=== PATIENT | female | born 1945 | race Caucasian/White ===

== ENCOUNTER → 2016-12-27 | Outpatient (CLI) | payer MEDICARE ==
[~2016-12-27] MED LIST: BACLOFEN10 MG PO; CLINDAMYCIN HC300 MG PO; CYMBALTA60 MG PO; HYDROCODONE BIT1 T11 PO; LISINOPRIL10 MG PO; NEURONTIN300 MG PO; NORFLEX100 MG PO; PERCOCET 325 MG1 TA5 PO; VOLTAREN 2.5 M2.5 ML OPH
--- NOTE | ~2016-12-27 | HM ---
[place], [place] HOLTER MONITOR REPORT NAME: MONTEZ ALVES I UNIT #: [id number] ROOM: DOCTOR: FERNANDEZ VILLEGAS MD BIRTHDATE: [birth year] DOS: A 48-hour Holter monitor. REFERRING PHYSICIAN: Dr. Joshua Hammond and Dr. Shanique Streeter INDICATIONS: Bradycardia, dizziness and dyspnea. PROCEDURE: The patient was monitored utilizing a Holter device from December 27 through 12/29/2016 for 48 hours. The recording was reviewed and this is being dictated on 01/01/2017. FINDINGS: The patient was in sinus rhythm during the entire examination. Average heart rate was 67 with sinus heart rates varying from 50-106 beats per minute. The patient had rare premature ventricular contractions. No ventricular tachycardia was seen. The patient had rare premature atrial contractions. She had 3 short runs of SVT lasting up to 9 beats in duration. The 9 beat episode occurred at 4:08 a.m. No atrial fibrillation was recorded. There were no prolonged pauses. IMPRESSION: 1. Normal sinus rhythm. 2. Rare premature ventricular contractions without ventricular tachycardia. 3. Rare premature atrial contractions with 3 short runs of supraventricular tachycardia, the longest of which was 9 beats in duration. The patient did not return her diary and therefore no symptoms were available for correlation. FERNANDEZ VILLEGAS MD CM:HOLTER:HOLTER MONITOR REPORT [id number] FERNANDEZ VILLEGAS MD
== END | disposition home or self-care (01) ==
LOC: CARD 13:00
DX: R00.1 Bradycardia, unspecified (principal); R42 Dizziness and giddiness; R06.00 Dyspnea, unspecified

== ENCOUNTER → 2018-11-22 | Outpatient (CLI) | payer MEDICARE, OTHER ==
[2018-11-22 12:38] LABS: ALBUMIN 3.8 gm/dl (3.1-4.5); ALKALINE PHOSPHATASE 73 U/L (45-117); BUN 16 mg/dl (7-24); CHLORIDE 108 mmol/L (98-107); CHOLESTEROL 143 mg/dL (<200); CREATININE 0.91 mg/dL (0.55-1.02); HDL CHOLESTEROL 50 mg/dl (40-60); LDL CHOLESTEROL 76 mg/dL (9-159); SGOT/AST 16 IU/L (3-35); SGPT/ALT 17 U/L (12-78); SODIUM 142 mmol/L (136-145); TOTAL PROTEIN 7.3 gm/dL (6.4-8.2); TRIGLYCERIDES 87 mg/dl (<150); URIC ACID 6.3 mg/dL (2.6-6.0); VLDL CHOLESTEROL 17 mg/dL (6-40)
[2018-11-22 12:45] LABS: BASO % 0.7 % (0.0-1.0); EOS # 0.1 10*3/uL (0.0-0.4); EOS % 1.8 % (1.0-4.0); HEMATOCRIT 33.9 % (37.0-47.0); HEMOGLOBIN 10.4 g/dl (12.0-16.0); LYMPH # 1.3 10*3/uL (1.3-4.4); LYMPH % 29.6 % (27.0-41.0); MEAN CELL VOLUME 89.4 fl (81.0-99.0); MEAN CORPUSCULAR HGB 27.4 pg (27.0-31.0); MEAN CORPUSCULAR HGB CONC 30.7 g/dl (33.0-37.0); MEAN PLATELET VOLUME 10.4 fl (9.6-12.3); MONO # 0.3 10*3/uL (0.1-1.0); MONO % 5.7 % (3.0-9.0); NEUT # 2.7 10*3/uL (2.3-7.9); PLATELET COUNT AUTOMATED 186 10*3/uL (130-400); RED BLOOD COUNT 3.79 10*6/uL (4.10-5.10); WHITE BLOOD COUNT 4.4 10*3/uL (4.8-10.8)
== END | disposition home or self-care (01) ==
LOC: LAB 11:38
PROVIDERS: Family Medicine
DX: I48.91 Unspecified atrial fibrillation (principal); R20.2 Paresthesia of skin; M25.50 Pain in unspecified joint; Z79.899 Other long term (current) drug therapy

== ENCOUNTER 2019-03-17 13:16 | Emergency (ER) | payer MEDICARE, OTHER ==
[~2019-03-17] VITALS: Wt 113.4 kg
[2019-03-17 13:45] LABS: BASO % 0.6 % (0.0-1.0); EOS # 0.1 10*3/uL (0.0-0.4); EOS % 1.3 % (1.0-4.0); HEMATOCRIT 37.2 % (37.0-47.0); HEMOGLOBIN 11.5 g/dl (12.0-16.0); LYMPH # 1.1 10*3/uL (1.3-4.4); LYMPH % 21.3 % (27.0-41.0); MEAN CELL VOLUME 91.2 fl (81.0-99.0); MEAN CORPUSCULAR HGB 28.2 pg (27.0-31.0); MEAN CORPUSCULAR HGB CONC 30.9 g/dl (33.0-37.0); MEAN PLATELET VOLUME 9.6 fl (9.6-12.3); MONO # 0.4 10*3/uL (0.1-1.0); MONO % 8.2 % (3.0-9.0); NEUT # 3.6 10*3/uL (2.3-7.9); NEUT % 68.4 % (47.0-73.0); PLATELET COUNT AUTOMATED 184 10*3/uL (130-400); RED BLOOD COUNT 4.08 10*6/uL (4.10-5.10); RED CELL DISTRI WIDTH 13.2 % (0-14.5); WHITE BLOOD COUNT 5.3 10*3/uL (4.8-10.8)
[2019-03-17 13:55] LABS: ACT PARTIAL THROMBO TIME 26.4 SECONDS (20.0-32.1); INTERNATIONAL NORM RATIO 0.9 (2.0-3.5)
[2019-03-17 14:00] LABS: ALBUMIN 3.8 gm/dl (3.1-4.5); ALKALINE PHOSPHATASE 74 U/L (45-117); BUN 15 mg/dl (7-24); CHLORIDE 107 mmol/L (98-107); CREATININE 0.86 mg/dL (0.55-1.02); LIPASE 663 U/L (73-393); POTASSIUM 4.5 mmol/L (3.5-5.1); SGOT/AST 15 IU/L (3-35); SGPT/ALT 19 U/L (12-78); SODIUM 142 mmol/L (136-145); TOTAL PROTEIN 7.4 gm/dL (6.4-8.2)
[2019-03-17 14:02] LABS: TROPONIN I < 0.015 ng/ml (<0.045)
[2019-03-17 14:54] LABS: BILIRUBIN NEGATIVE (NEGATIVE); BLOOD NEGATIVE (NEGATIVE); CLARITY CLEAR (CLEAR); COLOR YELLOW (YELLOW); GLUCOSE NEGATIVE (NEGATIVE); KETONE NEGATIVE (NEGATIVE); LEUKO ESTERASE NEGATIVE (NEGATIVE); NITRITE NEGATIVE (NEGATIVE); PH 6.5 (5.0-9.0); SPECIFIC GRAVITY <= 1.005 (1.005-1.030)
[2019-03-17 15:05] LABS: WBC 0-2 wbc/hpf (0-5)
== END 2019-03-17 16:30 | disposition short-term general hospital (02) ==
LOC: ED 13:16
PROVIDERS: Nurse Practitioner Family
DX: S02.2XXA Fracture of nasal bones, initial encounter for closed fracture (principal); S12.101A Unspecified nondisplaced fracture of second cervical vertebra, initial encounter for closed fracture; I10 Essential (primary) hypertension; R20.0 Anesthesia of skin; R20.2 Paresthesia of skin; Z79.2 Long term (current) use of antibiotics; Z79.899 Other long term (current) drug therapy; W19.XXXA Unspecified fall, initial encounter; Y93.89 Activity, other specified; Y92.002 Bathroom of unspecified non-institutional (private) residence as the place of occurrence of the external cause; Y99.8 Other external cause status

== ENCOUNTER 2022-10-04 10:40 | Inpatient (IN) | payer MEDICARE, OTHER ==
[~2022-10-04] VITALS: Ht 160 cm; Wt 136.6 kg
[~2022-10-04 10:40] MED LIST changes: -BACLOFEN10 MG PO; +BACLOFEN5 MG PO
[2022-10-04 10:54] VITALS: BP 109/49
[2022-10-04] MEDS ORDERED: TRAMADOL HCL50 MG PO (11:02)
[2022-10-04] MEDS ORDERED: DICLOFENAC SOD100 G1 T (11:04)
[2022-10-04] MEDS ORDERED: FUROSEMIDE20 M1 PO (11:04)
[2022-10-04] MEDS ORDERED: MYCOLOG OINTMEN15 GM PO (11:06)
[2022-10-04] MEDS ORDERED: BUDESONIDE-FO10.2 G1 INH (11:07)
[2022-10-04] MEDS ORDERED: METOPROLOL SUCC25 M2 PO (11:08)
[2022-10-04 12:03] LABS: BASO % 0.6 % (0.0-1.0); EOS # 0.1 10*3/uL (0.0-0.4); EOS % 1.4 % (1.0-4.0); HEMATOCRIT 34.4 % (37.0-47.0); LYMPH # 1.3 10*3/uL (1.3-4.4); LYMPH % 25.9 % (27.0-41.0); MEAN CELL VOLUME 95.6 fl (81.0-99.0); MEAN CORPUSCULAR HGB 29.4 pg (27.0-31.0); MEAN CORPUSCULAR HGB CONC 30.8 g/dl (33.0-37.0); MEAN PLATELET VOLUME 9.2 fl (9.6-12.3); MONO # 0.3 10*3/uL (0.1-1.0); NEUT # 3.4 10*3/uL (2.3-7.9); NEUT % 65.5 % (47.0-73.0); PLATELET COUNT AUTOMATED 174 10*3/uL (130-400); RED CELL DISTRI WIDTH 13.7 % (0-14.5); WHITE BLOOD COUNT 5.2 10*3/uL (4.8-10.8)
[2022-10-04 12:13] LABS: ACT PARTIAL THROMBO TIME 27.4 SECONDS (20.0-32.1); INTERNATIONAL NORM RATIO 1.1 (2.0-3.5)
[2022-10-04 12:27] LABS: ALKALINE PHOSPHATASE 70 U/L (46-116); BUN 13 mg/dl (9-23); CHLORIDE 109 mmol/L (98-107); LIPASE 22 U/L (12-53); POTASSIUM 4.6 mmol/L (3.4-5.1); SGPT/ALT 9 U/L (10-49); TOTAL PROTEIN 6.7 gm/dL (6.0-8.0)
[2022-10-04 14:52] VITALS: BP 116/50
[2022-10-04 19:33] VITALS: BP 86/48
[2022-10-04 20:15] VITALS: BP 105/66
[2022-10-05 00:48] VITALS: BP 110/60
[2022-10-05 00:53] LABS: BILIRUBIN Negative (Negative); BLOOD Negative (Negative); CLARITY Cloudy (Clear); COLOR Yellow (Yellow); GLUCOSE Negative (Negative); KETONE Negative (Negative); LEUKO ESTERASE 1+ (Negative); NITRITE Negative (Negative); UROBILINOGEN 0.2 E.U./dl (0.0-1.0)
[2022-10-05 01:00] LABS: EPITHELIAL CELLS 41-50
[2022-10-05 01:01] LABS: URIC ACID CRYSTALS 1+
[2022-10-05 06:08] LABS: HEMATOCRIT 34.2 % (37.0-47.0); LYMPH # 0.5 10*3/uL (1.3-4.4); LYMPH % 15.5 % (27.0-41.0); MEAN CELL VOLUME 96.3 fl (81.0-99.0); MEAN CORPUSCULAR HGB 29.3 pg (27.0-31.0); MEAN CORPUSCULAR HGB CONC 30.4 g/dl (33.0-37.0); MEAN PLATELET VOLUME 9.7 fl (9.6-12.3); MONO % 0.6 % (3.0-9.0); NEUT # 2.7 10*3/uL (2.3-7.9); NEUT % 82.7 % (47.0-73.0); PLATELET COUNT AUTOMATED 183 10*3/uL (130-400); RED BLOOD COUNT 3.55 10*6/uL (4.10-5.10); RED CELL DISTRI WIDTH 13.6 % (0-14.5); WHITE BLOOD COUNT 3.2 10*3/uL (4.8-10.8)
[2022-10-05 06:13] LABS: BUN 13 mg/dl (9-23); CHLORIDE 107 mmol/L (98-107); CHOLESTEROL 119 mg/dL (<200); LDL CHOLESTEROL 67 mg/dL (9-159); POTASSIUM 4.5 mmol/L (3.4-5.1); TRIGLYCERIDES 44 mg/dl (<150)
[2022-10-05 06:25] LABS: VITAMIN D, 25-HYDROXY 62.2 ng/mL (30-100)
[2022-10-05 08:00] VITALS: BP 97/43
[2022-10-05 12:00] VITALS: BP 127/62
[2022-10-05 16:00] VITALS: BP 94/43
[2022-10-05 21:30] VITALS: BP 110/60
[2022-10-06] VITALS: BP 116/47
[2022-10-06 06:18] LABS: BUN 18 mg/dl (9-23); CHLORIDE 104 mmol/L (98-107); POTASSIUM 4.3 mmol/L (3.4-5.1)
[2022-10-06 06:38] LABS: HEMATOCRIT 34.4 % (37.0-47.0); LYMPH # 0.6 10*3/uL (1.3-4.4); LYMPH % 8.2 % (27.0-41.0); MEAN CORPUSCULAR HGB CONC 30.5 g/dl (33.0-37.0); MEAN PLATELET VOLUME 9.9 fl (9.6-12.3); MONO # 0.2 10*3/uL (0.1-1.0); MONO % 1.9 % (3.0-9.0); NEUT % 89.4 % (47.0-73.0); PLATELET COUNT AUTOMATED 207 10*3/uL (130-400); RED BLOOD COUNT 3.62 10*6/uL (4.10-5.10); WHITE BLOOD COUNT 7.8 10*3/uL (4.8-10.8)
[2022-10-06 08:00] VITALS: BP 139/73
[2022-10-06 12:00] VITALS: BP 118/55
[2022-10-06] MEDS ORDERED: KLOR-CON 1010 ME1 PO (12:29)
[2022-10-06] MEDS ORDERED: LASIX40 MG PO (12:29)
[2022-10-06] MEDS ORDERED: PREDNISONE10 MG PO (12:29)
[2022-10-06] MEDS ORDERED: ZITHROMAX250 MG PO (12:29)
== END 2022-10-06 15:11 | disposition home or self-care (01) | DRG 177 ==
LOC: ED 10:40 → EDHOLD 12:59 → 4E 12:59 → EDHOLD 13:16 → 4E 18:29
PROVIDERS: Emergency Medicine; Internal Medicine; Student in an Organized Health Care Education/Training Program; ADMIT Student in an Organized Health Care Education/Training Program; ATTEND Student in an Organized Health Care Education/Training Program
DX: J15.6 Pneumonia due to other Gram-negative bacteria (principal); I50.33 Acute on chronic diastolic (congestive) heart failure; J96.01 Acute respiratory failure with hypoxia; I13.0 Hypertensive heart and chronic kidney disease with heart failure and stage 1 through stage 4 chronic kidney disease, or unspecified chronic kidney disease; E44.1 Mild protein-calorie malnutrition; J44.0 Chronic obstructive pulmonary disease with (acute) lower respiratory infection; J44.1 Chronic obstructive pulmonary disease with (acute) exacerbation; Z68.43 Body mass index [BMI] 50.0-59.9, adult; D64.9 Anemia, unspecified; R00.1 Bradycardia, unspecified; E66.01 Morbid (severe) obesity due to excess calories; E87.8 Other disorders of electrolyte and fluid balance, not elsewhere classified; N18.31 Chronic kidney disease, stage 3a; Z87.891 Personal history of nicotine dependence; Z80.1 Family history of malignant neoplasm of trachea, bronchus and lung; Z80.42 Family history of malignant neoplasm of prostate; Z79.899 Other long term (current) drug therapy

== ENCOUNTER 2022-10-31 12:25 | Emergency (ER) | payer MEDICARE, OTHER ==
[~2022-10-31] VITALS: Wt 119.3 kg
[~2022-10-31 12:25] MED LIST changes: +BUDESONIDE-FO10.2 G1 INH; +DICLOFENAC SOD100 G1 T; +FUROSEMIDE20 M1 PO; +KLOR-CON 1010 ME1 PO; +LASIX40 MG PO; +METOPROLOL SUCC25 M2 PO; +MYCOLOG OINTMEN15 GM PO; +PREDNISONE10 MG PO; +TRAMADOL HCL50 MG PO; +ZITHROMAX250 MG PO
[2022-10-31 13:12] LABS: BASO % 0.1 % (0.0-1.0); EOS % 0.5 % (1.0-4.0); HEMATOCRIT 32.6 % (37.0-47.0); LYMPH # 0.9 10*3/uL (1.3-4.4); LYMPH % 12.3 % (27.0-41.0); MEAN CELL VOLUME 95.3 fl (81.0-99.0); MEAN CORPUSCULAR HGB 28.7 pg (27.0-31.0); MEAN CORPUSCULAR HGB CONC 30.1 g/dl (33.0-37.0); MONO # 0.3 10*3/uL (0.1-1.0); MONO % 4.1 % (3.0-9.0); NEUT # 6.1 10*3/uL (2.3-7.9); NEUT % 82.7 % (47.0-73.0); PLATELET COUNT AUTOMATED 160 10*3/uL (130-400); RED BLOOD COUNT 3.42 10*6/uL (4.10-5.10); RED CELL DISTRI WIDTH 13.2 % (0-14.5); WHITE BLOOD COUNT 7.4 10*3/uL (4.8-10.8)
[2022-10-31 13:25] LABS: ACT PARTIAL THROMBO TIME 25.5 SECONDS (20.0-32.1)
[2022-10-31 13:27] LABS: ABG BASE EXCESS -1.9 mmol/L (-2.0-2.0); ARTERIAL BLOOD GAS PH 7.302 (7.35-7.45)
[2022-10-31 13:35] LABS: TOTAL PROTEIN 6.7 gm/dL (6.0-8.0)
[2022-10-31 15:57] LABS: BILIRUBIN Negative (Negative); BLOOD Negative (Negative); CLARITY Clear (Clear); COLOR Yellow (Yellow); GLUCOSE Negative (Negative); KETONE Negative (Negative); LEUKO ESTERASE Negative (Negative); NITRITE Negative (Negative); SPECIFIC GRAVITY 1.015 (1.001-1.030)
[2022-10-31 16:11] LABS: BACTERIA TRACE; EPITHELIAL CELLS 0-2; RBC 0-2 rbc/hpf (0-2); WBC 0-2 wbc/hpf (0-5)
== END 2022-10-31 18:32 | disposition short-term general hospital (02) ==
LOC: ED 12:25
PROVIDERS: Emergency Medicine
DX: S72.92XA Unspecified fracture of left femur, initial encounter for closed fracture (principal); N17.9 Acute kidney failure, unspecified; J96.01 Acute respiratory failure with hypoxia; G93.41 Metabolic encephalopathy; I95.9 Hypotension, unspecified; M19.90 Unspecified osteoarthritis, unspecified site; Z98.890 Other specified postprocedural states; Z87.891 Personal history of nicotine dependence; W01.190A Fall on same level from slipping, tripping and stumbling with subsequent striking against furniture, initial encounter; Y93.89 Activity, other specified; Y92.89 Other specified places as the place of occurrence of the external cause; Y99.8 Other external cause status

== ENCOUNTER → 2023-04-17 | Outpatient (CLI) | payer MEDICARE, OTHER | END | disposition home or self-care (01) | LOC: CT 01:17 | PROVIDERS: ATTEND Internal Medicine Critical Care Medicine | DX: R91.1 Solitary pulmonary nodule (principal); I51.7 Cardiomegaly; J98.11 Atelectasis; K86.89 Other specified diseases of pancreas; J45.40 Moderate persistent asthma, uncomplicated; J96.11 Chronic respiratory failure with hypoxia; I25.10 Atherosclerotic heart disease of native coronary artery without angina pectoris; I70.0 Atherosclerosis of aorta; M25.78 Osteophyte, vertebrae; M48.04 Spinal stenosis, thoracic region; M40.294 Other kyphosis, thoracic region; R60.0 Localized edema; Z99.81 Dependence on supplemental oxygen; Z98.1 Arthrodesis status; Z80.1 Family history of malignant neoplasm of trachea, bronchus and lung; Z68.41 Body mass index [BMI] 40.0-44.9, adult ==

== ENCOUNTER → 2023-07-25 | Outpatient (CLI) | payer MEDICARE, OTHER | END | disposition home or self-care (01) | LOC: CT 01:32 | PROVIDERS: ATTEND Internal Medicine Critical Care Medicine | DX: R91.1 Solitary pulmonary nodule (principal); J45.40 Moderate persistent asthma, uncomplicated; J96.11 Chronic respiratory failure with hypoxia; J98.11 Atelectasis; M25.78 Osteophyte, vertebrae; I25.10 Atherosclerotic heart disease of native coronary artery without angina pectoris; R60.0 Localized edema; Z80.1 Family history of malignant neoplasm of trachea, bronchus and lung; Z99.81 Dependence on supplemental oxygen; Z68.41 Body mass index [BMI] 40.0-44.9, adult; Z87.891 Personal history of nicotine dependence ==

== ENCOUNTER → 2024-02-04 | Outpatient (CLI) | payer MEDICARE, OTHER | END | disposition home or self-care (01) | LOC: CT 10:42 | PROVIDERS: ATTEND Internal Medicine Critical Care Medicine | DX: J45.909 Unspecified asthma, uncomplicated (principal); J96.11 Chronic respiratory failure with hypoxia; R60.0 Localized edema; Z87.891 Personal history of nicotine dependence; Z99.81 Dependence on supplemental oxygen; Z80.1 Family history of malignant neoplasm of trachea, bronchus and lung ==

== ENCOUNTER 2024-08-09 10:48 | Inpatient (IN) | payer MEDICARE ==
[~2024-08-09] VITALS: Ht 160 cm; Wt 93.0 kg
[~2024-08-09 10:48] MED LIST changes: +LISINOPRIL10 M1 PO; -LISINOPRIL10 MG PO
[2024-08-09 10:57] VITALS: BP 101/62
[2024-08-09 11:29] LABS: BASO % 0.4 % (0.0-1.0); EOS # 0.1 10*3/uL (0.0-0.4); EOS % 1.1 % (1.0-4.0); HEMATOCRIT 29.8 % (37.0-47.0); MEAN CELL VOLUME 96.4 fl (81.0-99.0); MEAN CORPUSCULAR HGB 28.8 pg (27.0-31.0); MEAN CORPUSCULAR HGB CONC 29.9 g/dl (33.0-37.0); MEAN PLATELET VOLUME 10.3 fl (9.6-12.3); MONO # 0.5 10*3/uL (0.1-1.0); MONO % 6.4 % (3.0-9.0); NEUT # 5.3 10*3/uL (2.3-7.9); NEUT % 73.8 % (47.0-73.0); PLATELET COUNT AUTOMATED 188 10*3/uL (130-400); RED BLOOD COUNT 3.09 10*6/uL (4.10-5.10); RED CELL DISTRI WIDTH 12.3 % (0-14.5); WHITE BLOOD COUNT 7.2 10*3/uL (4.8-10.8)
[2024-08-09 11:48] LABS: POTASSIUM 5.3 mmol/L (3.4-5.1)
[2024-08-09] MEDS ORDERED: ALENDRONATE SOD70 M1 PO (12:21)
[2024-08-09 13:20] LABS: BILIRUBIN Negative (Negative); BLOOD Negative (Negative); CLARITY Cloudy (Clear); COLOR Yellow (Yellow); GLUCOSE Negative (Negative); KETONE Negative (Negative); LEUKO ESTERASE 2+ (Negative); NITRITE Negative (Negative); UROBILINOGEN 0.2 E.U./dl (0.0-1.0)
[2024-08-09] MEDS ORDERED: SODIUM CHLORIDE 0.9% 1,000 ML IV ONE ×2 (13:20→14:40)
[2024-08-09 13:27] LABS: BACTERIA 2+; EPITHELIAL CELLS 16-20; MUCOUS TRACE; WBC 31-40 wbc/hpf (0-5)
[2024-08-09 13:30] VITALS: BP 101/62
[2024-08-09] MEDS ORDERED: Ondansetron Hydrochloride 4 MG/2 ML VIAL IV PRN (14:15)
[2024-08-09] MEDS ORDERED: SODIUM CHLORIDE 0.9% 1,000 ML IV SCH (14:15)
[2024-08-09] MEDS ORDERED: ACETAMINOPHEN 325 MG TAB PO PRN (14:15)
[2024-08-09] MEDS ORDERED: TEMAZEPAM 15 MG CAP PO PRN (14:15)
[2024-08-09] MEDS ORDERED: Acetaminophen/Hydrocodone 5 MG/325 MG TABLET PO PRN (14:15)
[2024-08-09] MEDS ORDERED: MORPHINE Sulfate 2 MG/ML SYR IV PRN (14:15)
[2024-08-09] MEDS ORDERED: Magnesium Hydroxide 30 ML UDC PO PRN (14:15)
[2024-08-09] MEDS ORDERED: BISACODYL 5 MG TAB PO PRN (14:15)
[2024-08-09] MEDS ORDERED: DICLOFENAC SODIUM 100 GM TUBE T PRN (19:15)
[2024-08-09 20:00] VITALS: BP 115/59
[2024-08-09] MEDS ORDERED: traMADol Hydrochloride 50 MG TAB PO SCH (22:15)
[2024-08-10] VITALS: BP 113/64
[2024-08-10] MEDS ORDERED: cefTRIAXone Sodium 10 ML IV SCH (06:00)
[2024-08-10] MEDS ORDERED: ALENDRONATE SODIUM 70 MG TAB PO SCH (06:00)
[2024-08-10 06:39] LABS: BASO % 0.6 % (0.0-1.0); EOS # 0.1 10*3/uL (0.0-0.4); HEMATOCRIT 29.7 % (37.0-47.0); MEAN CELL VOLUME 94.3 fl (81.0-99.0); MEAN CORPUSCULAR HGB 28.9 pg (27.0-31.0); MEAN CORPUSCULAR HGB CONC 30.6 g/dl (33.0-37.0); MEAN PLATELET VOLUME 10.5 fl (9.6-12.3); MONO # 0.5 10*3/uL (0.1-1.0); MONO % 6.7 % (3.0-9.0); NEUT # 5.1 10*3/uL (2.3-7.9); NEUT % 71.9 % (47.0-73.0); PLATELET COUNT AUTOMATED 171 10*3/uL (130-400); RED BLOOD COUNT 3.15 10*6/uL (4.10-5.10); RED CELL DISTRI WIDTH 12.4 % (0-14.5); WHITE BLOOD COUNT 7.1 10*3/uL (4.8-10.8)
[2024-08-10 07:05] LABS: FREE T4 1.05 ng/dl (0.89-1.76); POTASSIUM 5.3 mmol/L (3.4-5.1)
[2024-08-10 08:00] VITALS: BP 122/54
[2024-08-10] MEDS ORDERED: SODIUM CHLORIDE 0.9% 1,000 ML IV SCH (08:50)
[2024-08-10] MEDS ORDERED: DULoxetine Hydrochloride 60 MG CAP PO SCH (10:00)
[2024-08-10] MEDS ORDERED: LISINOPRIL 10 MG TAB PO SCH (10:00)
[2024-08-10] MEDS ORDERED: FUROSEMIDE 40 MG TAB PO SCH (10:00)
[2024-08-10] MEDS ORDERED: METOPROLOL SUCCINATE XR 25 MG TAB PO SCH (10:00)
[2024-08-10 12:00] VITALS: BP 115/52
[2024-08-10] MEDS ORDERED: LEPTOSPERMUM HONEY 0.5 OZ TUBE T ONE (13:36)
[2024-08-10] MEDS ORDERED: FOAM BANDAGE 5X5 T ONE (13:36)
[2024-08-10 16:00] VITALS: BP 99/55
[2024-08-10 20:00] VITALS: BP 141/70
[2024-08-11] VITALS: BP 122/54
[2024-08-11 06:29] LABS: BASO % 0.6 % (0.0-1.0); EOS # 0.1 10*3/uL (0.0-0.4); EOS % 1.1 % (1.0-4.0); HEMATOCRIT 26.1 % (37.0-47.0); MEAN CORPUSCULAR HGB 28.7 pg (27.0-31.0); MEAN CORPUSCULAR HGB CONC 29.9 g/dl (33.0-37.0); MONO # 0.4 10*3/uL (0.1-1.0); MONO % 7.4 % (3.0-9.0); NEUT # 3.7 10*3/uL (2.3-7.9); NEUT % 70.3 % (47.0-73.0); PLATELET COUNT AUTOMATED 157 10*3/uL (130-400); RED BLOOD COUNT 2.72 10*6/uL (4.10-5.10); RED CELL DISTRI WIDTH 12.5 % (0-14.5); WHITE BLOOD COUNT 5.3 10*3/uL (4.8-10.8)
[2024-08-11 08:00] VITALS: BP 122/55
[2024-08-11 12:00] VITALS: BP 118/60
[2024-08-11] MEDS ORDERED: LASIX40 MG PO (12:56)
[2024-08-11] MEDS ORDERED: OMNICEF300 MG PO (12:56)
[2024-08-11] MEDS ORDERED: NYSTATIN 15 GM BOT T SCH (22:00)
[2024-08-12] MEDS ORDERED: Lidocaine Hydrochloride 3% 30 GM CREAM T SCH (10:00)
== END 2024-08-11 14:00 | disposition home or self-care (01) | DRG 682 ==
LOC: ED 10:48 → 4E 13:26 → EDHOLD 13:26 → 4E 13:46
PROVIDERS: Nurse Practitioner Family; Student in an Organized Health Care Education/Training Program; ADMIT Internal Medicine; ATTEND Internal Medicine
DX: N17.0 Acute kidney failure with tubular necrosis (principal); G93.41 Metabolic encephalopathy; N39.0 Urinary tract infection, site not specified; I50.32 Chronic diastolic (congestive) heart failure; I13.0 Hypertensive heart and chronic kidney disease with heart failure and stage 1 through stage 4 chronic kidney disease, or unspecified chronic kidney disease; E87.5 Hyperkalemia; E86.0 Dehydration; N18.31 Chronic kidney disease, stage 3a; D64.9 Anemia, unspecified; R73.9 Hyperglycemia, unspecified; G62.9 Polyneuropathy, unspecified; J44.9 Chronic obstructive pulmonary disease, unspecified; E66.9 Obesity, unspecified; Z87.891 Personal history of nicotine dependence; Z80.42 Family history of malignant neoplasm of prostate; Z80.1 Family history of malignant neoplasm of trachea, bronchus and lung; Z79.899 Other long term (current) drug therapy; Z68.36 Body mass index [BMI] 36.0-36.9, adult

== ENCOUNTER → 2025-02-16 | Outpatient (CLI) | payer MEDICARE ==
[~2025-02-16] MED LIST changes: +ALENDRONATE SOD70 M1 PO; +OMNICEF300 MG PO
== END | disposition home or self-care (01) ==
LOC: CT 09:34
PROVIDERS: ATTEND Internal Medicine Critical Care Medicine
DX: J44.9 Chronic obstructive pulmonary disease, unspecified (principal); R91.1 Solitary pulmonary nodule; J45.40 Moderate persistent asthma, uncomplicated; R06.83 Snoring; J98.11 Atelectasis; R60.0 Localized edema; Z80.1 Family history of malignant neoplasm of trachea, bronchus and lung; Z68.38 Body mass index [BMI] 38.0-38.9, adult